=== PATIENT | female | born 1950 | race Caucasian/White ===

== ENCOUNTER → 2019-11-13 11:56 | Outpatient (CLI) | payer MEDICARE, OTHER, SELFPAY ==
[2019-11-14 09:58] LABS: COVID19 Sendout Not Detected (Not Detect)
== END ==
PROVIDERS: Visit Provider Student in an Organized Health Care Education/Training Program
DX: Z11.59 Encounter for screening for other viral diseases (principal)
CPT/HCPCS: 87635

== ENCOUNTER → 2019-11-16 10:21 | Outpatient (CLI) | payer MEDICARE, OTHER, SELFPAY ==
--- NOTE | 2019-11-16 11:42 | PM.TREADMILL ---
Cardiac Stress Test Report Referral & Results Date Patient Seen: 11/16/19 Time Patient Seen: 11:43 Requesting provider: Naseem Hdz Indication: atherosclerotic heart disease Rest ECG: sinus rhythm Procedure Note: Standard Osmar protocol, 4:05, 4.3 METS Reduced exercise capacity, MARCY + 29% Normal hemodynamic response to exercise but hypertensive at baseline No chest pain or anginal symptoms; Significant dyspnea at low level exercise No significant ST changes with exercise, occasional PVCs Impression: normal exercise stress test MIBI images pending Please note: Actual ECG tracings can be found in the PACS system.
--- NOTE | 2019-11-18 04:15 | DI.NM.S_ITS ---
DATE OF SERVICE: 11/16/2019 PROCEDURE: Exercise perfusion study. INDICATION: Coronary artery calcification, shortness of breath, diabetes, hypertension and hyperlipidemia. RADIOPHARMACEUTICAL: 25.3 millicurie technetium-99m Myoview IV was injected at stress and 24.4 millicurie technetium-99m Myoview IV was injected at rest. CARDIAC STRESS: The patient underwent exercise perfusion study under the supervision of an attending staff. She walked on Osmar protocol for 4 minutes 05 seconds and achieved 91 percent of target heart rate. Baseline blood pressure 150/98. Peak blood pressure 200/100. Baseline rhythm was sinus. During stress, no convincing ischemic change is seen. Some PACs and occasional PVCs were seen. No significant sustained supraventricular or ventricular arrhythmias. No chest pain, however, had significant shortness of breath at lower level of exercise. The patient achieved positive 29 percent of functional aerobic impairment and 5.1 METS of workload. RAW DATA: There was breast shadow seen. Patient's weight is 240 pounds. GATED STUDY: Stress LV ejection fraction 83 percent without any obvious wall motion abnormalities. Resting end-diastolic volume 94 mL. No transient ischemic dilatation. TID ratio is 0.95, which is within normal limits. Lung/heart ratio 0.24, which is within normal limits. MYOCARDIAL PERFUSION: Stress supine and resting supine images revealed a small size ,mildly decreased perfusion of mid anterior wall and inferior apex which got resolved during prone images, suggestive of tissue attenuation artifact, most likely breast tissue attenuation artifact. No convincing ischemia or infarction on stress prone images. CONCLUSION: I will call this study likely a normal myocardial perfusion study with evidence of breast tissue attenuation artifact, which got resolved during prone images. Baseline hypertension. Preserved left ventricular function. Diminished exercise tolerance. The patient developed significant shortness of breath during a low level of exercise. No chest pain. Clinical correlation is recommended. JaylinEmerald perrya - LENI/kam/arcelia doc#: [id number]/job#: [id number] dd: 11/17/2019 17:00:00 dt: 11/18/2019 04:03:00 DICTATING MD/COPIES TO: Barbie Boyd MD COPIES MNE: JOSEFINA;
== END ==
PROVIDERS: PCP Family Medicine; Referring Provider Internal Medicine Cardiovascular Disease; Visit Provider Internal Medicine Cardiovascular Disease
DX: I25.10 Atherosclerotic heart disease of native coronary artery without angina pectoris (principal); R06.02 Shortness of breath; E11.9 Type 2 diabetes mellitus without complications; I10 Essential (primary) hypertension; E78.5 Hyperlipidemia, unspecified
CPT/HCPCS: 78452; 93017; A9502

== ENCOUNTER → 2021-11-21 13:50 | Outpatient (CLI) | payer MEDICARE, OTHER, SELFPAY ==
--- NOTE | 2021-11-21 | DI.NM.S_ITS ---
PROCEDURE: NM EXERCISE TREADMILL NON NUC COMPARISON: None. INDICATIONS: Atherosclerotic heart disease FINDINGS: The patient exercised for 3 minutes and 10 seconds reaching 4.6 METs, MARCY 43%. 92% of maximum predicted heart rate achieved. Appropriate BP response to exercise. No Angina during the study. No ST changes with exercise. Occasional PACs and PVCs during the study. IMPRESSION: Low risk, normal treadmill ECG only stress test with moderately reduced exercise tolerance (MARCY +43%). Dictated by: Naseem Hdz MD on 11/24/2021 at 13:35 Approved by: Naseem Hdz MD on 11/24/2021 at 13:37
[2021-11-21 14:46] LABS: COVID19 -Nasal RAPID Negative (Negative)
== END ==
PROVIDERS: PCP Nurse Practitioner Family; Referring Provider Internal Medicine Cardiovascular Disease; Visit Provider Internal Medicine Cardiovascular Disease
DX: I25.10 Atherosclerotic heart disease of native coronary artery without angina pectoris (principal); Z20.822 Contact with and (suspected) exposure to COVID-19
CPT/HCPCS: 87635; 93017

== ENCOUNTER → 2022-04-09 12:56 | Outpatient (CLI) | payer MEDICARE, OTHER, SELFPAY ==
--- NOTE | 2022-04-09 12:58 | DI.RAD.S_ITS ---
PROCEDURE: FL BARIUM SWALLOW W SPEECH INDICATIONS: DYSPHAGIA COMPARISON: None. TECHNIQUE: Examination was conducted in conjunction with speech pathology per standard protocol. In the lateral projection, filming was performed of the patient swallowing. AP projection filming may also be performed with patient swallowing. COMPARISON: FINDINGS: Function: The oral preparatory phase appears normal, with proper containment. The subsequent oral propulsive phase, pharyngeal phase, and esophageal phase of swallowing also appear normal with all proffered substances. No laryngotracheal penetration or aspiration. No pathologic vallecular pooling. Morphology: No cricopharyngeal bar is identified. No cervical esophageal webs. No Zenker's diverticulum. No strictures. IMPRESSION: Negative barium swallow. Dictated by: Joaquín Mendoza M.D. on 04/09/2022 at 14:46 Transcribed by: ANANYA on 04/09/2022 at 14:47 Approved by: Joaquín Mendoza M.D. on 04/09/2022 at 15:42
--- NOTE | 2022-04-09 15:18 | ST.SWALLOW ---
Visit Care Team Role Provider Type HOLA Tena Attending Provider Non-Staff Primary Care Provider Referring Provider Specialty: Nursing [address]: [address] [place] [address], [id number] Email: Modified Barium Swallow Study [employer] Modified Barium Swallow Study Start: 04/09/22 14:03 Freq: Status: Active Protocol: Document 04/09/22 14:03 ZS (Rec: 04/09/22 14:11 ZS [id number]) Modified Barium Swallow Study Total Time Visit Start Time 13:30 Visit Stop Time 14:00 Total Visit Minutes 30 Visit Information Visit Number Initial Evaluation Setting Setting Outpatient Care Patient Information Identification Type Name Patient History Ashley is a 71-year old female referred for a modified barium swallow study by her [employer] due to concerns of food getting stuck when she swallows. Ashley reported solids, such as bread or dry meats, will feel like they get stuck and then get backed up and she needs to wash it down with liquid and an effortful swallow. She stated swallowing difficulty happens at almost every meal and has been happening for about 4-5 years. She added she has post-nasal drip and is followed by an ENT due to phlegm building up around her airway and restricting her breathing, which Ashley stated she has been hospitalized for previously. Ashley reported she does not experience difficulty swallowing liquids, unless the system is already backed up from solids. Subjective Observations Ashley arrived on time and ambulated independently. She stated she was mildly claustrophobic when she sat in the assessment chair, though added she could distract herself and it would be okay. Provided education on process and procedure and Ashley expressed understanding and agreed to participate. Patient Positioning Position View Lat-A/P Imaging Lateral View Textures Administered Trials Presented Thin Liquid via Cup,[place] Liquid via Cup,Regular Textures Oral Phase Source: MBSIMP (TM) (C) Bolus Specific Scoring Grid Lip Closure No Impairment (WNL) Tongue Control During Bolus Hold No Impairment (WNL) Bolus Prep/Mastication No Impairment (WNL) Bolus Transport/Lingual Motion No Impairment (WNL) A/P Lingual Propulsion Delay No Oral Residue Mild Impairment Residue Clearing No Impairment (WNL) Nasal Regurgitation No Additional Oral Phase Observations No anterior or posterior loss of bolus during tongue hold. Mastication and a/p propulsion of bolus was WNL. Mild oral residue observed following swallow, which pt cleared with spontaneous second swallow. Pharyngeal Phase Source: MBSIMP (TM) (C) Bolus Specific Scoring Grid Delayed Initiation of Pharyngeal Swallow Yes: head of bolus in valleculae Soft Palate Elevation No Impairment (WNL) Tongue Base Strength/Range of Motion No Impairment (WNL) Residue Along the Tongue Base Yes: mild Clearance of Residue Along Tongue Base No Impairment (WNL) Laryngeal Elevation No Impairment (WNL) Anterior Hyoid Movement Mild Impairment Epiglottic Range of Motion No Impairment (WNL) Vallecular Residue Yes: trace Clearance of Vallecular Residue No Impairment (WNL) Laryngeal Vestibular Closure Mild Impairment Pharyngeal Stripping Wave Mild Impairment Pharyngeal Contraction No Impairment (WNL) Posterior Pharyngeal Wall Residue No Upper Esophageal Sphincter Opening No Impairment (WNL) Residue in the Pyriform Sinuses Yes: trace Clearance of Residue in the Pyriform No Impairment (WNL) Sinuses Esophageal Clearance Upright Position WFL Pharyngoesophageal Backflow Observed No Additional Pharyngeal Phase Observations Delayed initiation of pharyngeal swallow, with the head of the bolus in the valleculae. Pharyngeal stripping wave was reduced, which may contribute to residue along base of tongue, however, all residue was cleared with second swallow and was WFL. Larynx elevated WNL but hyoid only moved partially anteriorly. Laryngeal vestibular closure was adequate for most trials, though with consecutive trials of thin liquids, 2 instances of penetration were observed ( PAS 2, 3). Chin tuck was not effective in eliminating penetration, with an additional instance noted (PAS 3). No aspiration or penetration noted with NTLs. Trace residue remained in pyriforms and thicker liquids resulted in increased residue in valleculae, though this was cleared with a second swallow . Epiglottis did appear stiffer than typical, though this did not appear to significantly impact inversion . A/P View Textures Administered Trials Presented Thin Liquid via Cup,Barium Tablet A/P View Observations Pharyngeal Contraction No Impairment (WNL) Esophageal Function WFL,Slowed Clearing Esophageal Clearance Upright Position WFL Additional Observations Mild narrowing at gastroesophageal sphincter and slightly slowed clearing at this point of thin liquid and barium tablet, though WFL. Pt may experience food getting stuck, especially hard textures like bread and dry meats, at narrow point near gastroesophageal sphincter if she is eating quickly and distracted. Pt stated she often experiences more difficulty when distractions are present while she is eating. May refer to GI if pt continues to experience food getting stuck while eating. Clinical Impressions Dysphagia Type Pharyngeal phase dysphagia Findings The pt presents with mild pharyngeal phase dysphagia and possible narrowing of esophagus, characterized by food getting stuck and impaired airway closure. Impaired laryngeal vestibular closure may be related to slightly stiffer epiglottis as well as mildly impaired hyolaryngeal excursion. Passage of thin liquid and barium tablet through esophagus was WFL, though may be worsened by increased pace of eating or more distractions present during meals. Recommend speech therapy to improve laryngeal vestibular closure for increased airway protection and reduced risk of aspiration. Recommend smaller bites and alternating between solids and liquids as well as slower pace while eating and minimized distractions during meals to improve motility through esophagus. Pt may benefit from referral to GI if she continues to experience discomfort while eating due to food getting stuck. Rehabilitation Potential Excellent Patient Appropriate for Therapy Yes Recommendations Diet Liquids Order Thin Diet Order Regular Medication Recommendation As Tolerated Aspiration Precautions Recommended Precautions Upright at 90 Degrees, Alternate Liquids/Solids,Small Bites/Sips Treatment Plan Therapy Recommendations Outpatient Speech Therapy Compensatory Strategies Recommendations Sitting Upright (90 deg),Small Bites and Sips,Alternate Liquids/Solids
== END ==
PROVIDERS: PCP Nurse Practitioner Family; Referring Provider Nurse Practitioner Family; Visit Provider Nurse Practitioner Family
DX: R13.10 Dysphagia, unspecified (principal)
CPT/HCPCS: 74230; 92611

== ENCOUNTER → 2024-10-27 17:05 | Outpatient (CLI) | payer MEDICARE, OTHER, SELFPAY ==
--- NOTE | 2024-10-27 17:07 | DI.MRI.S_ITS ---
PROCEDURE: MR KNEE LT WO CON INDICATIONS: PAIN LT KNEE TECHNIQUE: Noncontrast sagittal PD fast spin echo and T2 fast spin echo with fat saturation, sagittal 3-D FLASH with fat saturation; coronal T1 spin echo and PD fast spin echo with fat saturation, and axial PD fast spin echo with fat saturation through the knee. COMPARISON: [facility], CR, XR KNEE 4+ VIEWS LEFT, 05/17/2024, 15:03. FINDINGS: Image quality: Excellent. Menisci: Medial extrusion of the medial meniscus. There linear oblique and amorphous high signal intensity within the inner, middle, and peripheral thirds of the anterior horn, body, and posterior horn medial meniscus, demonstrating superior and inferior articular surface extension, indicating complex tearing. There is amorphous high T2 signal intensity within the inner, and middle thirds of the lateral meniscal body, demonstrating superior articular surface extension, indicating degenerative tearing. Cruciate ligaments: The anterior and posterior cruciate ligaments appear intact. Medial structures: The medial collateral ligament appears intact. Visualized portions of the pes anserinus tendons appear normal. No abnormal bursal fluid. Lateral structures: The lateral collateral ligament demonstrates moderate T2 signal elevation the femoral origin. The long and short heads of the biceps femoris tendon appear intact. The popliteus tendon appears normal. Iliotibial band appears normal. Anterior structures: The quadriceps and patellar tendons appear intact. Patellar alignment is normal. No femoral trochlear dysplasia or ventral trochlear prominence. No edema in the infrapatellar fat pad. Moderate prepatellar ill-defined T2 signal elevation and fluid. Bones and cartilage: No bone marrow contusions or fractures. Severe ill- defined STIR signal elevation within the mid weight-bearing aspects of the medial femoral condyle and medial tibial plateau. Moderate tricompartmental periarticular osteophyte formation. Severe articular cartilage loss diffusely overlies the weight-bearing aspects of the medial femoral condyle and medial tibial plateau. Severe articular cartilage loss overlies the patellar apex and medial patellar facet. Joint space: There is a moderate knee joint effusion and a small Tan's cyst. Normal appearing synovial plicae are incidentally noted. IMPRESSION: 1. Medial and lateral meniscal tearing. 2. Tricompartmental osteoarthritis with associated articular cartilage loss. 3. Prepatellar bursitis. 4. Knee joint effusion and Tan's cyst. 5. Partial thickness lateral collateral ligament tear. Dictated by: Joaquín Mendoza M.D. on 10/30/2024 at 11:51 Approved by: Joaquín Mendoza M.D. on 10/30/2024 at 11:53
== END ==
PROVIDERS: PCP Nurse Practitioner Family; Referring Provider Nurse Practitioner Family; Visit Provider Orthopaedic Surgery
DX: S83.242A Other tear of medial meniscus, current injury, left knee, initial encounter (principal); S83.282A Other tear of lateral meniscus, current injury, left knee, initial encounter; S83.422A Sprain of lateral collateral ligament of left knee, initial encounter; M17.12 Unilateral primary osteoarthritis, left knee; M71.562 Other bursitis, not elsewhere classified, left knee; M25.462 Effusion, left knee; M71.22 Synovial cyst of popliteal space [Baker], left knee; M25.562 Pain in left knee
CPT/HCPCS: 73721